=== PATIENT | female | born 1970 | race Two or more races ===

== ENCOUNTER 2019-04-06 12:08 | Emergency (ER) | payer SELFPAY ==
[~2019-04-06] VITALS: Ht 165.1 cm; Wt 100.0 kg
[2019-04-06] MEDS ORDERED: TRAM50TA3 PO (12:49)
[2019-04-06] MEDS ORDERED: DES150 GT (12:49)
[2019-04-06] MEDS ORDERED: CELE200C PO (12:49)
[2019-04-06] MEDS ORDERED: AMLO5TAB4 PO (12:49)
[2019-04-06] MEDS ORDERED: PRED-543 PO (12:49)
[2019-04-06] MEDS ORDERED: OMEP20TA15 PO (12:49)
[2019-04-06] MEDS ORDERED: GABA-533 PO (12:49)
[2019-04-06] MEDS ORDERED: SULF500T PO (12:49)
[2019-04-06] MEDS ORDERED: LIPA1CAP18 PO (12:49)
[2019-04-06] MEDS ORDERED: HYDR200T80 PO (12:49)
[2019-04-06] MEDS ORDERED: MORPHINE SULFATE 4 MG/ML CPJ (NOT FOR IM USE) IV ONE (14:00)
[2019-04-06] MEDS ORDERED: SODIUM CHLORIDE 0.9% 1,000 ML IV ONE (14:00)
[2019-04-06] MEDS ORDERED: ONDANSETRON HCL 4MG/2ML INJ IV ONE (14:00)
[2019-04-06 14:17] LABS: CLARITY URINE CLOUDY (CLEAR); COLOR URINE YELLOW (YELLOW); KETONES URINE 1+ (NEGATIVE); LEUKOCYTE ESTERASE URINE NEGATIVE (NEGATIVE); NITRITE URINE NEGATIVE (NEGATIVE); OCCULT BLOOD URINE NEGATIVE (NEGATIVE); PH URINE >=9.0 (4.5-8.0); PROTEIN URINE TRACE (NEGATIVE); SPECIFIC GRAVITY URINE 1.017 (1.005-1.030); UROBILINOGEN URINE 0.2 E.U./dL (0.2-1.0)
[2019-04-06 14:20] LABS: BASOPHILS % 0.6 % (0.0-2.0); HEMATOCRIT. 40.3 % (36.0-48.0); HEMOGLOBIN. 13.7 g/dL (12.0-16.0); LYMPHOCYTES % 9.1 % (20.0-50.0); MEAN CORPUSCULAR HEMOGLOBIN 34.5 pg (28.0-32.0); MEAN CORPUSCULAR VOLUME 101.5 fL (81.0-99.0); MEAN PLATELET VOLUME 7.5 fl (7.4-10.4); NEUTROPHILS % 84.3 % (40.0-76.0); PLATELET 275 x1000/uL (130-400); RED BLOOD CELL COUNT 3.97 mill/uL (4.2-5.4); RED CELL DISTRIBUTION WIDTH 16.5 % (11.6-14.6)
[2019-04-06 14:22] LABS: CHLORIDE 107 mEq/L (98-107)
[2019-04-06 14:23] LABS: PROTHROMBIN TIME 10.3 sec (9.6-11.0)
[2019-04-06] MEDS ORDERED: MORPHINE SULFATE 4 MG/ML CPJ (NOT FOR IM USE) IV NR (16:15)
[2019-04-06] MEDS: ONDANSETRON HCL 4MG/2ML INJ IV NR ×2 (17:20→17:42)
[2019-04-06] MEDS ORDERED: IOHEXOL-300 100 ML BOTTLE ONE (18:28)
[2019-04-06] MEDS ORDERED: LEVOFLOXACIN 500MG PREMIX 100 ML IV ONE (18:45)
[2019-04-06] MEDS ORDERED: POTASSIUM CHLORIDE 20MEQ/PACKET PO NR (18:45)
[2019-04-06] MEDS ORDERED: METRONIDAZOLE 500 MG PREMIX 100 ML IV ONE (18:45)
== END 2019-04-06 19:43 | disposition home or self-care (01) ==
LOC: ER 12:08
DX: K57.92 Diverticulitis of intestine, part unspecified, without perforation or abscess without bleeding (principal); E87.6 Hypokalemia; K83.8 Other specified diseases of biliary tract; D72.829 Elevated white blood cell count, unspecified; F12.10 Cannabis abuse, uncomplicated; Z87.39 Personal history of other diseases of the musculoskeletal system and connective tissue; Z87.19 Personal history of other diseases of the digestive system; Z91.013 Allergy to seafood; Z79.899 Other long term (current) drug therapy
CPT/HCPCS: 36415; 71045; 74177; 76705; 80053; 81003; 81025; 83690; 85025; 85610; 86850; 86870; 86900; 86901; 93005; 96361; 96374; 96375; 96376; 99284; J2270; J2405; J7030; Q9967